=== PATIENT | female | born 2000 | race Caucasian/White ===

== ENCOUNTER 2023-09-04 06:33 | Day surgery (SDC) | payer OTHER ==
[~2023-09-04] VITALS: Ht 170.2 cm; Wt 81.6 kg
[2023-09-04] MEDS ORDERED: MIDAZOLAM 2 MG/2 ML VIAL ONE ×2 (07:15→08:04)
[2023-09-04] MEDS ORDERED: PROPOFOL 200 MG/20 ML VIAL IV ONE ×2 (07:17)
[2023-09-04] MEDS ORDERED: fentaNYL citrate 0.05 MG/ML VIAL ONE ×2 (07:19→08:12)
[2023-09-04] MEDS ORDERED: LIDOCAINE 2% 100 MG/5 ML SYR IVP ONE (08:02)
[2023-09-04] MEDS ORDERED: ePHEDrine 50 MG/ML VIAL ONE (08:35)
[2023-09-04] MEDS: LIDOCAINE/EPI 1% 1:100000 20 ML VIAL INJ ONE (08:50)
[2023-09-04] MEDS: BUPIVACAINE-MPF 0.25% 30 ML VIAL INJ ONE (08:50)
[2023-09-04] MEDS ORDERED: HYDROmorphone 1 MG/ML AMP IVP PRN (08:55)
[2023-09-04] MEDS ORDERED: ONDANSETRON 4 MG/2 ML VIAL IVP PRN (08:55)
[2023-09-04] MEDS ORDERED: MEPERIDINE 25 MG/ML SYR IVP PRN (08:55)
[2023-09-04] MEDS ORDERED: CONJUGATED ESTROGENS VAG CREAM 42 GM TUBE VG SCH (09:00)
== END 2023-09-04 11:50 | disposition home or self-care (01) ==
LOC: MDS 06:33 → MMU 06:43 → MDS 11:50
PROVIDERS: ATTEND Obstetrics & Gynecology
DX: Q52.3 Imperforate hymen (principal); N94.19 Other specified dyspareunia; Q52.10 Doubling of vagina, unspecified; N83.201 Unspecified ovarian cyst, right side
CPT/HCPCS: 56700; 57130; 82948; 88302; J2001; J2250; J2704; J3010; J3490

== ENCOUNTER 2024-03-24 17:55 | Emergency (ER) | payer OTHER ==
[~2024-03-24] VITALS: Ht 175.3 cm; Wt 84.4 kg
[2024-03-24 18:10] VITALS: BP 125/82; PULSE 76; RESP 15; TEMP 98.4; O2SAT 100
[2024-03-24] MEDS: ACETAMINOPHEN 325 MG TAB PO ONE (19:04)
== END 2024-03-24 19:18 | disposition home or self-care (01) ==
LOC: MED 17:55
DX: S39.92XA Unspecified injury of lower back, initial encounter (principal); R03.0 Elevated blood-pressure reading, without diagnosis of hypertension; W01.0XXA Fall on same level from slipping, tripping and stumbling without subsequent striking against object, initial encounter; Y92.89 Other specified places as the place of occurrence of the external cause; Y93.89 Activity, other specified; Y99.8 Other external cause status
CPT/HCPCS: 72220; 81025; 99283